=== PATIENT | male | born 1995 | race Caucasian/White ===

== ENCOUNTER → 2017-06-28 | Outpatient (CLI) | payer BC ==
--- NOTE | 2017-06-28 15:00 | Diagnostic Imaging Report ---
Scrotal ultrasound. INDICATION: Right scrotal pain. FINDINGS: The right testicle is 4.7 x 2.6 x 3.1 cm. The left testicle is 4 x 2.3 x 3 cm. The testicular parenchyma is fairly homogeneous on both sides. There are right epididymal cysts seen measuring up to 1.4 cm in size. Thin septation is seen with no solid nodule identified. No solid mass is identified in the testicles or outside the testicles within the scrotum. Doppler evaluation demonstrates arterial and venous waveforms in both testicles. No varicocele is seen. Tiny hydrocele is seen on the right side and very minimal hydrocele is seen on the left. IMPRESSION: Septated 1.4 cm right epididymal cyst is seen with no solid mass identified. Dictated by: Dictated on workstation # [id number]
== END ==
LOC: RAD 13:27
PROVIDERS: ATTEND Nurse Practitioner Family
DX: N50.3 Cyst of epididymis (principal)
CPT/HCPCS: 76870

== ENCOUNTER 2021-07-27 06:42 | Emergency (ER) | payer BC ==
[~2021-07-27] VITALS: Ht 187.9 cm; Wt 102.8 kg
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
[2021-07-27] MEDS ORDERED: IBUPROFEN 600 MG (MOTRIN) TAB PO ONE (07:15)
[2021-07-27] MEDS ORDERED: TETANUS,DIPTH,PERTUSS P/F (BOOSTRIX) 0.5 ML VIAL IM ONE (07:15)
[2021-07-27 07:39] VITALS: BP 113/74
== END 2021-07-27 07:39 | disposition home or self-care (01) ==
LOC: EDUNIT# 06:42 → ER 06:45
DX: T23.222A Burn of second degree of single left finger (nail) except thumb, initial encounter (principal); Z23 Encounter for immunization; X15.2XXA Contact with hotplate, initial encounter
CPT/HCPCS: 90715; 99284